=== PATIENT | female | born 1950 | race Two or more races ===

== ENCOUNTER 2023-01-22 14:40 | Inpatient (IN) | payer MEDICARE, OTHER ==
[~2023-01-22] VITALS: Ht 160 cm; Wt 83.7 kg
[2023-01-22] MEDS ORDERED: DEXAMETHASONE SOD PHOSPHATE 4 MG INJ IV ONE (15:30)
[2023-01-22] MEDS ORDERED: IV NORMAL SALINE 1000 ML BAG IV ONE (15:30)
[2023-01-22] MEDS ORDERED: CEFTRIAXONE 1 G in IV DEXTROSE 5% 50 ML IV ONE (15:30)
[2023-01-22] MEDS ORDERED: AZITHROMYCIN IV 500 MG in IV DEXTROSE 5% 250 ML IV ONE (15:30)
[2023-01-22] MEDS ORDERED: CEFTRIAXONE /D5W 50ML IVPB **ER PYXIS IV ONE (15:33)
[2023-01-22] MEDS ORDERED: nka (15:45)
[2023-01-22] MEDS ORDERED: DEXAMETHASONE SOD PHOSPHATE 10 MG INJ ONE (15:51)
[2023-01-22 16:07] LABS: BASOPHILS # (AUTO) 0.1 K/UL (0.0-0.2); BASOPHILS % (AUTO) 1.2 % (0.0-2.0); EOSINOPHILS # (AUTO) 0.3 K/uL (0.0-0.7); EOSINOPHILS % (AUTO) 3.1 % (0.0-7.0); LYMPHOCYTES # (AUTO) 1.6 K/uL (0.8-4.8); LYMPHOCYTES % (AUTO) 19.5 % (20.5-51.5); MEAN CORPUSCULAR HEMOGLOBIN 30.3 uug (24.7-32.8); MEAN CORPUSCULAR HGB CONC 33 g/dL (32.3-35.6); MEAN CORPUSCULAR VOLUME 93.1 fL (75.5-95.3); MONOCYTES # (AUTO) 0.6 K/uL (0.1-1.30); MONOCYTES % (AUTO) 7.2 % (0.0-11.0); NEUTROPHILS # (AUTO) 5.7 K/uL (1.8-8.9); PLATELET COUNT (AUTO) 224 K/uL (179-408); RED CELL DISTRIBUTION WIDTH 15.4 % (12.3-17.7); WHITE BLOOD COUNT (AUTO) 8.3 K/uL (3.8-11.8)
[2023-01-22 16:24] LABS: *BILIRUBIN,URIN NEGATIVE (NEGATIVE); *BLOOD, URINE 1+ (NEGATIVE); *COLOR,URINE YELLOW (YELLOW); *KETONES,URINE NEGATIVE (NEGATIVE); *UROBILINOGEN,URINE 0.2 E.U./dl (NORMAL); LEUKOCYTE ESTERASE ,URINE 2+ (NEGATIVE); NITRITE, URINE NEGATIVE (NEGATIVE); UGLUCOSE TRACE (NEGATIVE)
[2023-01-22 16:35] LABS: CALCIUM 7.1 mg/dL (8.5-10.1); CARBON DIOXIDE 20 mmol/L (21-32); CHLORIDE 101 mmol/L (98-107); CREATININE 1.5 mg/dL (0.6-1.3); GLUCOSE 303 mg/dL (74-106); SODIUM SERUM 131 mmol/L (136-145); UREA NITROGEN, BLOOD 46 mg/dL (7-18)
[2023-01-22 16:37] LABS: RED BLOOD CELL COUNT(AUTO) 1.49 MIL/uL (3.63-4.92)
[2023-01-22 16:38] LABS: DIFFERENTIAL COMMENT 1; HEMATOCRIT 13.9 % (31.2-41.9)
[2023-01-22 16:39] LABS: HEMOGLOBIN 4.5 g/dL (10.9-14.3)
[2023-01-22 16:47] LABS: ALANINE AMINOTRANSFERASE 6 U/L (14-59); ALKALINE PHOSPHATASE 58 U/L (50-136); ASPARTATE AMINOTRANSFERASE 13 U/L (15-37); BILIRUBIN,DIRECT 0.1 mg/dL (0.0-0.2); BILIRUBIN,TOTAL 0.2 mg/dL (0.2-1.0); NT-PRO BNP 1544 pg/mL (0-125); TOTAL PROTEIN, SERUM 3.5 g/dL (6.4-8.2)
[2023-01-22 17:03] LABS: ALBUMIN 1.1 g/dL (3.4-5.0)
[2023-01-22 17:22] LABS: *PROTEIN,URINE 3+ (NEGATIVE)
[2023-01-22 17:23] LABS: *CLARITY,URINE SLIGHTLY CLOUDY (CLEAR)
[2023-01-22 17:28] LABS: BASOPHILS % (MANUAL) 0 % (0-2); EOSINOPHILS % (MANUAL) 2 % (0-8); LYMPHOCYTES % (MANUAL) 20 % (20-40); MONOCYTES % (MANUAL) 8 % (2-10); NEUTROPHILS % (MANUAL) 70 % (42-75)
[2023-01-22 18:02] LABS: ABG BASE EXCESS -4.5 mmol/L; ABG HCO3 18.3 mmol/L; ABG PCO2 23.5 mmHg (35.0-45.0); ABG PO2 75.7 mmHg (75.0-100.0); ABG SITE RIGHT RADIAL; ABG TOTAL HEMOGLOBIN 5.2 G/dL (12.0-16.0); COHb 0.5 % (0.5-1.5); MetHb 0.4 % (0.0-1.5); O2Hb 94.5 % (94.0-97.0); VENT MODE room air
[2023-01-22] MEDS ORDERED: REMEDY ESSENTIAL ZINC PASTE 113 GM TP PRN (18:30)
[2023-01-22] MEDS ORDERED: ONDANSETRON 4 MG/2 ML VIAL IV PRN (18:30)
[2023-01-22] MEDS ORDERED: MAGNESIUM HYDROXIDE 30 ML LIQUID UDC PO PRN (18:30)
[2023-01-22] MEDS ORDERED: ACETAMINOPHEN 325 MG TABLET PO PRN (18:30)
[2023-01-22] MEDS ORDERED: PIPERACILLIN SODIUM/TAZOBACTAM 4.5 G in IV DEXTROSE 5% 50 ML IV SCH (18:30)
[2023-01-22] MEDS ORDERED: VANCOMYCIN IV 1,500 MG in IV DEXTROSE 5% 500 ML IV ONE (21:30)
[2023-01-22 21:40] VITALS: BP 111/41; TEMP 97.4; O2SAT 94
[2023-01-22] MEDS ORDERED: PIPERACILLIN/TAZO 4.5 GM VIAL IV ONE ×2 (22:09)
[2023-01-22] MEDS ORDERED: VANCOMYCIN IV 200 ML ONE (22:11)
[2023-01-22] MEDS ORDERED: VANCOMYCIN HCL 500 MG VIAL ONE (22:12)
[2023-01-22] MEDS: IV NS 1000 ML 1,000 ML IV PRN (22:14)
[2023-01-22] MEDS ORDERED: DEXTROSE 50% 50 ML DISP.SYRIN IV PRN (23:00)
[2023-01-22] MEDS: BLOOD SUGAR DIAGNOSTIC 1 EACH STRIP VI SCH (23:02)
[2023-01-22] MEDS: INSULIN REGULAR, HUMAN 300 UNIT/3 ML VIAL SQ PRN (23:04)
[2023-01-22] MEDS: PIPERACILLIN SODIUM/TAZOBACTAM 4.5 G in IV DEXTROSE 5% 50 ML IV SCH (23:32)
[2023-01-23] VITALS (18 sets, daily range): BP systolic 101–132; BP diastolic 45–65; TEMP 97–97.9; O2SAT 97–99
[2023-01-23] MEDS: PIPERACILLIN SODIUM/TAZOBACTAM 4.5 G in IV DEXTROSE 5% 50 ML IV SCH (05:09)
[2023-01-23 05:22] LABS: BASOPHILS % (AUTO) 0.2 % (0.0-2.0); HEMATOCRIT 24.1 % (31.2-41.9); HEMOGLOBIN 8.3 g/dL (10.9-14.3); LYMPHOCYTES % (AUTO) 7.4 % (20.5-51.5); MEAN CORPUSCULAR HEMOGLOBIN 30.5 uug (24.7-32.8); MEAN CORPUSCULAR HGB CONC 35 g/dL (32.3-35.6); MEAN CORPUSCULAR VOLUME 88.3 fL (75.5-95.3); MONOCYTES # (AUTO) 0.4 K/uL (0.1-1.30); MONOCYTES % (AUTO) 2.6 % (0.0-11.0); NEUTROPHILS % (AUTO) 89.8 % (38.5-71.5); PLATELET COUNT (AUTO) 196 K/uL (179-408); RED BLOOD CELL COUNT(AUTO) 2.73 MIL/uL (3.63-4.92); RED CELL DISTRIBUTION WIDTH 14.5 % (12.3-17.7); WHITE BLOOD COUNT (AUTO) 13.4 K/uL (3.8-11.8)
[2023-01-23 05:31] LABS: DIFFERENTIAL COMMENT 1
[2023-01-23 05:36] LABS: CALCIUM 7.5 mg/dL (8.5-10.1); CARBON DIOXIDE 20 mmol/L (21-32); CHLORIDE 101 mmol/L (98-107); CREATININE 1.8 mg/dL (0.6-1.3); GLUCOSE 216 mg/dL (74-106); MAGNESIUM 2.5 mg/dL (1.8-2.4); POTASSIUM 5.3 mmol/L (3.5-5.1); SODIUM SERUM 130 mmol/L (136-145); UREA NITROGEN, BLOOD 47 mg/dL (7-18)
[2023-01-23] MEDS: BLOOD SUGAR DIAGNOSTIC 1 EACH STRIP VI SCH ×4 (06:30→20:29)
[2023-01-23] MEDS ORDERED: PANTOPRAZOLE SODIUM IV 40 MG in IV DEXTROSE 5% 100 ML IV SCH (09:00)
[2023-01-23] MEDS: PANTOPRAZOLE SODIUM 40 MG VIAL IV SCH ×2 (09:07→20:29)
[2023-01-23] MEDS: INSULIN REGULAR, HUMAN 300 UNIT/3 ML VIAL SQ PRN ×3 (09:08→20:39)
[2023-01-23 12:56] LABS: THYROID STIMULATING HORMONE 1.291 mIU/mL (0.358-3.740)
[2023-01-23] MEDS: PIPERACILLIN SODIUM/TAZOBACTAM 3.375 G in IV DEXTROSE 5% 100 ML IV SCH ×2 (14:44→23:29)
[2023-01-23 17:58] LABS: HEMATOCRIT 21.1 % (31.2-41.9)
[2023-01-23 18:04] LABS: HEMOGLOBIN 6.9 g/dL (10.9-14.3)
[2023-01-23] MEDS ORDERED: HYDR25SU33 RC (18:49)
[2023-01-23] MEDS ORDERED: AMLO10TA59 PO (18:49)
[2023-01-23] MEDS ORDERED: LACT1TAB12 PO (18:49)
[2023-01-23] MEDS ORDERED: LUBI24CA5 PO (18:49)
[2023-01-23] MEDS ORDERED: INSU100V39 SQ (18:53)
[2023-01-23] MEDS ORDERED: DOCU100C36 PO (18:53)
[2023-01-23] MEDS ORDERED: HYDR-894 PO (18:53)
[2023-01-23] MEDS ORDERED: SODI20VI2 IV (19:00)
[2023-01-23] MEDS ORDERED: POLY17PO4 GT (19:00)
[2023-01-23] MEDS ORDERED: PANT40TA49 PO (19:00)
[2023-01-23] MEDS ORDERED: MESA4ENE4 RC (19:00)
[2023-01-23] MEDS ORDERED: LACT10SO58 PO (19:00)
[2023-01-23] MEDS: IV NS 1000 ML 1,000 ML IV PRN (19:14)
[2023-01-23 19:58] LABS: *OCCULT BLOOD STOOL POSITIVE (NEGATIVE)
[2023-01-24] VITALS (8 sets, daily range): BP systolic 101–131; BP diastolic 47–66; TEMP 97.1–98.3; O2SAT 96–100
[2023-01-24] MEDS: PIPERACILLIN SODIUM/TAZOBACTAM 3.375 G in IV DEXTROSE 5% 100 ML IV SCH ×3 (05:19→22:16)
[2023-01-24] MEDS: BLOOD SUGAR DIAGNOSTIC 1 EACH STRIP VI SCH ×4 (06:33→21:01)
[2023-01-24 07:13] LABS: BASOPHILS % (AUTO) 0.1 % (0.0-2.0); EOSINOPHILS # (AUTO) 0.1 K/uL (0.0-0.7); EOSINOPHILS % (AUTO) 1.2 % (0.0-7.0); HEMATOCRIT 25.3 % (31.2-41.9); HEMOGLOBIN 8.9 g/dL (10.9-14.3); LYMPHOCYTES % (AUTO) 19.9 % (20.5-51.5); MEAN CORPUSCULAR HEMOGLOBIN 31.3 uug (24.7-32.8); MEAN CORPUSCULAR HGB CONC 35 g/dL (32.3-35.6); MEAN CORPUSCULAR VOLUME 89.1 fL (75.5-95.3); MONOCYTES # (AUTO) 0.7 K/uL (0.1-1.30); MONOCYTES % (AUTO) 7.4 % (0.0-11.0); NEUTROPHILS # (AUTO) 7.1 K/uL (1.8-8.9); NEUTROPHILS % (AUTO) 71.4 % (38.5-71.5); PLATELET COUNT (AUTO) 224 K/uL (179-408); RED BLOOD CELL COUNT(AUTO) 2.84 MIL/uL (3.63-4.92); RED CELL DISTRIBUTION WIDTH 14.6 % (12.3-17.7)
[2023-01-24 07:23] LABS: DIFFERENTIAL COMMENT 1
[2023-01-24 07:29] LABS: ALANINE AMINOTRANSFERASE 9 U/L (14-59); ALKALINE PHOSPHATASE 134 U/L (50-136); ASPARTATE AMINOTRANSFERASE 16 U/L (15-37); BILIRUBIN,TOTAL 0.6 mg/dL (0.2-1.0); CALCIUM 7.4 mg/dL (8.5-10.1); CARBON DIOXIDE 19 mmol/L (21-32); CHLORIDE 102 mmol/L (98-107); CREATINE KINASE, TOTAL 104 U/L (26-192); CREATININE 1.6 mg/dL (0.6-1.3); GLUCOSE 116 mg/dL (74-106); MAGNESIUM 2.4 mg/dL (1.8-2.4); PHOSPHOROUS 4.4 mg/dL (2.5-4.9); POTASSIUM 4.4 mmol/L (3.5-5.1); SODIUM SERUM 133 mmol/L (136-145); TOTAL PROTEIN, SERUM 4.6 g/dL (6.4-8.2); UREA NITROGEN, BLOOD 41 mg/dL (7-18)
[2023-01-24 07:52] LABS: URIC ACID 4.8 mg/dL (2.6-6.0)
[2023-01-24] MEDS ORDERED: VANCOMYCIN IV 1,250 MG in IV DEXTROSE 5% 250 ML IV ONE (08:00)
[2023-01-24 08:58] LABS: ALBUMIN 1.5 g/dL (3.4-5.0)
[2023-01-24] MEDS: PANTOPRAZOLE SODIUM 40 MG VIAL IV SCH ×2 (09:22→20:57)
[2023-01-24 18:06] LABS: HEMATOCRIT 25.6 % (31.2-41.9); HEMOGLOBIN 9.2 g/dL (10.9-14.3)
[2023-01-25] VITALS: BP 130/50; TEMP 97.8; O2SAT 99
[2023-01-25 04:00] VITALS: BP 131/57; TEMP 97.5; O2SAT 99
[2023-01-25 04:01] VITALS: BP 132/53; TEMP 97.6; O2SAT 99
[2023-01-25] MEDS: IV NS 1000 ML 1,000 ML IV PRN (04:09)
[2023-01-25] MEDS: PIPERACILLIN SODIUM/TAZOBACTAM 3.375 G in IV DEXTROSE 5% 100 ML IV SCH ×3 (05:55→21:20)
[2023-01-25 06:07] LABS: PTH, INTACT 64 pg/mL (15-65)
[2023-01-25] MEDS: BLOOD SUGAR DIAGNOSTIC 1 EACH STRIP VI SCH ×4 (06:40→21:20)
[2023-01-25 08:11] LABS: CALCIUM 7.3 mg/dL (8.5-10.1); CARBON DIOXIDE 20 mmol/L (21-32); CHLORIDE 106 mmol/L (98-107); CREATININE 1.6 mg/dL (0.6-1.3); GLUCOSE 100 mg/dL (74-106); SODIUM SERUM 135 mmol/L (136-145); UREA NITROGEN, BLOOD 36 mg/dL (7-18)
[2023-01-25 08:16] LABS: POTASSIUM 4.6 mmol/L (3.5-5.1)
[2023-01-25 09:07] LABS: A/G RATIO 0.7 (0.7-1.7); ALBUMIN 1.8 g/dL (2.9-4.4); ALPHA-1-GLOBULIN 0.3 g/dL (0.0-0.4); ALPHA-2-GLOBULIN 0.8 g/dL (0.4-1.0); BETA GLOBULIN 0.7 g/dL (0.7-1.3); GAMMA GLOBULIN 0.7 g/dL (0.4-1.8); GLOBULIN, TOTAL 2.5 g/dL (2.2-3.9); M-SPIKE Not Observed g/dL (Not Observed)
[2023-01-25] MEDS: PANTOPRAZOLE SODIUM 40 MG VIAL IV SCH ×2 (09:15→21:20)
[2023-01-25] MEDS ORDERED: VANCOMYCIN IV 1,000 MG in IV DEXTROSE 5% 250 ML IV SCH (11:00)
[2023-01-25 12:55] LABS: BASOPHILS % (AUTO) 0.5 % (0.0-2.0); EOSINOPHILS # (AUTO) 0.3 K/uL (0.0-0.7); EOSINOPHILS % (AUTO) 4.1 % (0.0-7.0); HEMATOCRIT 24.7 % (31.2-41.9); HEMOGLOBIN 8.4 g/dL (10.9-14.3); LYMPHOCYTES # (AUTO) 1.6 K/uL (0.8-4.8); LYMPHOCYTES % (AUTO) 26.5 % (20.5-51.5); MEAN CORPUSCULAR HEMOGLOBIN 31.2 uug (24.7-32.8); MEAN CORPUSCULAR HGB CONC 34 g/dL (32.3-35.6); MONOCYTES # (AUTO) 0.7 K/uL (0.1-1.30); MONOCYTES % (AUTO) 10.8 % (0.0-11.0); NEUTROPHILS # (AUTO) 3.6 K/uL (1.8-8.9); NEUTROPHILS % (AUTO) 58.1 % (38.5-71.5); PLATELET COUNT (AUTO) 232 K/uL (179-408); RED BLOOD CELL COUNT(AUTO) 2.71 MIL/uL (3.63-4.92); RED CELL DISTRIBUTION WIDTH 14.9 % (12.3-17.7); WHITE BLOOD COUNT (AUTO) 6.2 K/uL (3.8-11.8)
[2023-01-25 13:11] LABS: DIFFERENTIAL COMMENT 1
[2023-01-25 15:13] VITALS: BP 106/52; TEMP 97.6; O2SAT 99
[2023-01-25 16:20] VITALS: O2SAT 98
[2023-01-25] MEDS: IV D5 1/2 NS 1000 ML 1,000 ML IV SCH (18:14)
[2023-01-25 20:00] VITALS: BP 126/60; TEMP 97.6; O2SAT 97
[2023-01-25] MEDS: INSULIN REGULAR, HUMAN 300 UNIT/3 ML VIAL SQ PRN (21:30)
[2023-01-26 02:58] VITALS: O2SAT 98
[2023-01-26 04:00] VITALS: BP 150/69; TEMP 97.8; O2SAT 96
[2023-01-26] MEDS: PIPERACILLIN SODIUM/TAZOBACTAM 3.375 G in IV DEXTROSE 5% 100 ML IV SCH (05:06)
[2023-01-26] MEDS: IV D5 1/2 NS 1000 ML 1,000 ML IV SCH (06:21)
[2023-01-26] MEDS: BLOOD SUGAR DIAGNOSTIC 1 EACH STRIP VI SCH ×3 (06:38→16:57)
[2023-01-26 07:09] LABS: CALCIUM 7.6 mg/dL (8.5-10.1); CARBON DIOXIDE 20 mmol/L (21-32); CHLORIDE 105 mmol/L (98-107); CREATININE 1.5 mg/dL (0.6-1.3); GLUCOSE 147 mg/dL (74-106); SODIUM SERUM 134 mmol/L (136-145); UREA NITROGEN, BLOOD 31 mg/dL (7-18)
[2023-01-26 07:18] LABS: POTASSIUM 4.6 mmol/L (3.5-5.1)
[2023-01-26] MEDS ORDERED: VANCOMYCIN IV 1,000 MG in IV DEXTROSE 5% 250 ML IV ONE (08:00)
[2023-01-26 08:30] LABS: BASOPHILS # (AUTO) 0.1 K/UL (0.0-0.2); BASOPHILS % (AUTO) 0.8 % (0.0-2.0); EOSINOPHILS # (AUTO) 0.5 K/uL (0.0-0.7); EOSINOPHILS % (AUTO) 6.7 % (0.0-7.0); HEMATOCRIT 24.3 % (31.2-41.9); HEMOGLOBIN 8.4 g/dL (10.9-14.3); LYMPHOCYTES # (AUTO) 1.5 K/uL (0.8-4.8); MEAN CORPUSCULAR HEMOGLOBIN 31.3 uug (24.7-32.8); MEAN CORPUSCULAR HGB CONC 34 g/dL (32.3-35.6); MEAN CORPUSCULAR VOLUME 90.9 fL (75.5-95.3); MONOCYTES # (AUTO) 0.6 K/uL (0.1-1.30); MONOCYTES % (AUTO) 8.2 % (0.0-11.0); NEUTROPHILS # (AUTO) 4.5 K/uL (1.8-8.9); NEUTROPHILS % (AUTO) 63.3 % (38.5-71.5); PLATELET COUNT (AUTO) 252 K/uL (179-408); RED BLOOD CELL COUNT(AUTO) 2.67 MIL/uL (3.63-4.92); RED CELL DISTRIBUTION WIDTH 14.9 % (12.3-17.7); WHITE BLOOD COUNT (AUTO) 7.1 K/uL (3.8-11.8)
[2023-01-26] MEDS: PANTOPRAZOLE SODIUM 40 MG VIAL IV SCH (08:45)
[2023-01-26 12:30] VITALS: O2SAT 97
[2023-01-26] MEDS: INSULIN REGULAR, HUMAN 300 UNIT/3 ML VIAL SQ PRN ×2 (13:08→16:58)
[2023-01-26 16:00] VITALS: BP 142/62; TEMP 97.9; O2SAT 98
== END 2023-01-26 18:00 | DRG 377 ==
LOC: ER 14:40 → TELE3 21:05
PROVIDERS: ADMIT Internal Medicine; ATTEND Internal Medicine
PROC: 30233N1 Transfusion of Nonautologous Red Blood Cells into Peripheral Vein, Percutaneous Approach (ICD-10-PCS; principal; 2023-01-22)
DX: K92.2 Gastrointestinal hemorrhage, unspecified (principal); G93.41 Metabolic encephalopathy; J69.0 Pneumonitis due to inhalation of food and vomit; N17.0 Acute kidney failure with tubular necrosis; D62 Acute posthemorrhagic anemia; N39.0 Urinary tract infection, site not specified; E11.43 Type 2 diabetes mellitus with diabetic autonomic (poly)neuropathy; K31.84 Gastroparesis; E21.3 Hyperparathyroidism, unspecified; E11.65 Type 2 diabetes mellitus with hyperglycemia; E11.22 Type 2 diabetes mellitus with diabetic chronic kidney disease; R63.0 Anorexia; E87.5 Hyperkalemia; Z79.4 Long term (current) use of insulin; Z86.73 Personal history of transient ischemic attack (TIA), and cerebral infarction without residual deficits; Z87.19 Personal history of other diseases of the digestive system; N18.9 Chronic kidney disease, unspecified; I12.9 Hypertensive chronic kidney disease with stage 1 through stage 4 chronic kidney disease, or unspecified chronic kidney disease
CPT/HCPCS: 36415; 36600; 70030-TC; 70450; 71045; 76770; 82803; 83605; 83735; 83970; 84100; 84155; 84165; 84443; 84484; 84550; 85018; 85025; 85730; 86850; 86900; 86901; 86920; 87040; 93005; C1758; C9113; G0378; J0696; J1100; J1815; J2543; J3370; J7040; J7050; J7060; P9016

== ENCOUNTER 2023-01-26 18:33 | Inpatient (IN) | payer MEDICARE, OTHER ==
[~2023-01-26] VITALS: Ht 160 cm; Wt 87.7 kg
[~2023-01-26 18:33] MED LIST: AMLO10TA59 PO; DOCU100C36 PO; HYDR-894 PO; HYDR25SU33 RC; INSU100V39 SQ; LACT10SO58 PO; LACT1TAB12 PO; LUBI24CA5 PO; MESA4ENE4 RC; PANT40TA49 PO; POLY17PO4 GT; SODI20VI2 IV
[2023-01-26 20:17] VITALS: BP 134/56; TEMP 97.1; O2SAT 98
[2023-01-26] MEDS ORDERED: DEXTROSE 50% 50 ML DISP.SYRIN IV PRN (20:45)
[2023-01-26] MEDS: BLOOD SUGAR DIAGNOSTIC 1 EACH STRIP VI SCH (21:28)
[2023-01-26 22:00] VITALS: O2SAT 98
[2023-01-27 04:00] VITALS: BP 144/64; TEMP 98.6; O2SAT 100
[2023-01-27] MEDS: PANTOPRAZOLE SODIUM 40 MG TABLET.DR PO SCH ×2 (06:06→17:32)
[2023-01-27] MEDS: BLOOD SUGAR DIAGNOSTIC 1 EACH STRIP VI SCH ×4 (06:33→21:07)
[2023-01-27 09:23] VITALS: BP 128/50; TEMP 97.2; O2SAT 96
[2023-01-27] MEDS: HYDROCORTISONE RECTAL SUPP 25 MG EACH RC SCH ×2 (09:39→20:48)
[2023-01-27] MEDS: DOCUSATE SODIUM 100 MG CAPSULE PO SCH (09:39)
[2023-01-27] MEDS: AMLODIPINE 10 MG TABLET PO SCH (09:40)
[2023-01-27] MEDS: METOCLOPRAMIDE HCL 5 MG TABLET PO SCH ×3 (11:59→20:48)
[2023-01-27 16:14] VITALS: BP 128/58; TEMP 97.4; O2SAT 95
[2023-01-27 20:00] VITALS: BP 117/52; TEMP 98.2; O2SAT 95
[2023-01-27 20:38] VITALS: O2SAT 98
[2023-01-28 05:28] VITALS: BP 129/62; TEMP 98.1; O2SAT 96
[2023-01-28] MEDS: PANTOPRAZOLE SODIUM 40 MG TABLET.DR PO SCH ×2 (06:18→16:57)
[2023-01-28] MEDS: METOCLOPRAMIDE HCL 5 MG TABLET PO SCH ×4 (06:18→20:20)
[2023-01-28] MEDS: BLOOD SUGAR DIAGNOSTIC 1 EACH STRIP VI SCH ×4 (06:27→21:31)
[2023-01-28 07:21] LABS: BASOPHILS # (AUTO) 0.1 K/UL (0.0-0.2); BASOPHILS % (AUTO) 1.3 % (0.0-2.0); EOSINOPHILS # (AUTO) 0.3 K/uL (0.0-0.7); EOSINOPHILS % (AUTO) 4.9 % (0.0-7.0); HEMATOCRIT 26.3 % (31.2-41.9); HEMOGLOBIN 8.9 g/dL (10.9-14.3); LYMPHOCYTES # (AUTO) 1.5 K/uL (0.8-4.8); LYMPHOCYTES % (AUTO) 26.5 % (20.5-51.5); MEAN CORPUSCULAR HEMOGLOBIN 31.3 uug (24.7-32.8); MEAN CORPUSCULAR HGB CONC 34 g/dL (32.3-35.6); MEAN CORPUSCULAR VOLUME 92.4 fL (75.5-95.3); MONOCYTES # (AUTO) 0.4 K/uL (0.1-1.30); MONOCYTES % (AUTO) 6.4 % (0.0-11.0); NEUTROPHILS # (AUTO) 3.5 K/uL (1.8-8.9); NEUTROPHILS % (AUTO) 60.9 % (38.5-71.5); PLATELET COUNT (AUTO) 295 K/uL (179-408); RED BLOOD CELL COUNT(AUTO) 2.85 MIL/uL (3.63-4.92); RED CELL DISTRIBUTION WIDTH 15.3 % (12.3-17.7); WHITE BLOOD COUNT (AUTO) 5.7 K/uL (3.8-11.8)
[2023-01-28 07:34] LABS: DIFFERENTIAL COMMENT 1
[2023-01-28 08:00] VITALS: BP 136/60; O2SAT 100
[2023-01-28] MEDS: HYDROCORTISONE RECTAL SUPP 25 MG EACH RC SCH ×2 (09:23→20:20)
[2023-01-28] MEDS: DOCUSATE SODIUM 100 MG CAPSULE PO SCH (09:23)
[2023-01-28] MEDS: AMLODIPINE 10 MG TABLET PO SCH (09:23)
[2023-01-28] MEDS ORDERED: GOLYTELY 4000 ML BOTTLE PO ONE (10:30)
[2023-01-28] MEDS: IV D5 1/2 NS 1000 ML 1,000 ML IV PRN (11:49)
[2023-01-28] MEDS: ONDANSETRON 4 MG/2 ML VIAL IV PRN ×2 (13:35→20:20)
[2023-01-28 15:21] VITALS: BP 131/54; TEMP 98.6; O2SAT 96
[2023-01-28 17:02] VITALS: O2SAT 98
[2023-01-28] MEDS: INSULIN REGULAR, HUMAN 300 UNIT/3 ML VIAL SQ PRN (17:06)
[2023-01-28 20:11] VITALS: BP 133/61; TEMP 97.9
[2023-01-28 21:12] VITALS: O2SAT 98
[2023-01-29] MEDS: IV D5 1/2 NS 1000 ML 1,000 ML IV PRN ×2 (02:07→20:56)
[2023-01-29 04:00] VITALS: BP 148/70; TEMP 97.6; O2SAT 95
[2023-01-29 04:21] LABS: BASOPHILS # (AUTO) 0.1 K/UL (0.0-0.2); BASOPHILS % (AUTO) 0.8 % (0.0-2.0); EOSINOPHILS # (AUTO) 0.3 K/uL (0.0-0.7); EOSINOPHILS % (AUTO) 5.2 % (0.0-7.0); HEMATOCRIT 24.6 % (31.2-41.9); HEMOGLOBIN 8.4 g/dL (10.9-14.3); LYMPHOCYTES # (AUTO) 1.1 K/uL (0.8-4.8); LYMPHOCYTES % (AUTO) 17.3 % (20.5-51.5); MEAN CORPUSCULAR HEMOGLOBIN 31.2 uug (24.7-32.8); MEAN CORPUSCULAR HGB CONC 34 g/dL (32.3-35.6); MEAN CORPUSCULAR VOLUME 91.6 fL (75.5-95.3); MONOCYTES # (AUTO) 0.4 K/uL (0.1-1.30); MONOCYTES % (AUTO) 5.9 % (0.0-11.0); NEUTROPHILS # (AUTO) 4.5 K/uL (1.8-8.9); NEUTROPHILS % (AUTO) 70.8 % (38.5-71.5); PLATELET COUNT (AUTO) 291 K/uL (179-408); RED BLOOD CELL COUNT(AUTO) 2.69 MIL/uL (3.63-4.92); RED CELL DISTRIBUTION WIDTH 15.3 % (12.3-17.7); WHITE BLOOD COUNT (AUTO) 6.4 K/uL (3.8-11.8)
[2023-01-29 04:35] LABS: CALCIUM 7.6 mg/dL (8.5-10.1); CARBON DIOXIDE 21 mmol/L (21-32); CHLORIDE 106 mmol/L (98-107); CREATININE 1.4 mg/dL (0.6-1.3); GLUCOSE 144 mg/dL (74-106); MAGNESIUM 1.7 mg/dL (1.8-2.4); PHOSPHOROUS 3.2 mg/dL (2.5-4.9); POTASSIUM 3.8 mmol/L (3.5-5.1); SODIUM SERUM 137 mmol/L (136-145); UREA NITROGEN, BLOOD 19 mg/dL (7-18)
[2023-01-29 04:37] LABS: DIFFERENTIAL COMMENT 1
[2023-01-29] MEDS: ONDANSETRON 4 MG/2 ML VIAL IV PRN ×2 (04:48→12:53)
[2023-01-29] MEDS: BLOOD SUGAR DIAGNOSTIC 1 EACH STRIP VI SCH ×4 (06:55→21:00)
[2023-01-29] MEDS: PANTOPRAZOLE SODIUM 40 MG TABLET.DR PO SCH ×2 (07:00→16:35)
[2023-01-29] MEDS: METOCLOPRAMIDE HCL 5 MG TABLET PO SCH ×4 (07:02→22:19)
[2023-01-29] MEDS ORDERED: GOLYTELY 4000 ML BOTTLE PO ONE (07:30)
[2023-01-29 08:04] VITALS: BP 144/63; TEMP 97.9; O2SAT 96
[2023-01-29] MEDS ORDERED: MAGNESIUM OXIDE 400 MG TABLET PO ONE (08:15)
[2023-01-29] MEDS: DOCUSATE SODIUM 100 MG CAPSULE PO SCH (08:30)
[2023-01-29] MEDS: AMLODIPINE 10 MG TABLET PO SCH (08:30)
[2023-01-29] MEDS: HYDROCORTISONE RECTAL SUPP 25 MG EACH RC SCH ×2 (08:30→22:19)
[2023-01-29] MEDS: INSULIN REGULAR, HUMAN 300 UNIT/3 ML VIAL SQ PRN (12:35)
[2023-01-29 15:45] VITALS: BP 119/56; TEMP 98; O2SAT 95
[2023-01-29 17:34] VITALS: O2SAT 98
[2023-01-29 20:06] VITALS: BP 144/65; TEMP 97.9; O2SAT 96
[2023-01-30] VITALS (7 sets, daily range): BP systolic 128–146; BP diastolic 55–65; TEMP 97.6–97.9; O2SAT 95–98
[2023-01-30] MEDS: PANTOPRAZOLE SODIUM 40 MG TABLET.DR PO SCH ×2 (07:00→17:15)
[2023-01-30 07:28] LABS: BASOPHILS # (AUTO) 0.1 K/UL (0.0-0.2); EOSINOPHILS # (AUTO) 0.5 K/uL (0.0-0.7); EOSINOPHILS % (AUTO) 9.7 % (0.0-7.0); HEMOGLOBIN 8.3 g/dL (10.9-14.3); LYMPHOCYTES # (AUTO) 1.3 K/uL (0.8-4.8); LYMPHOCYTES % (AUTO) 25.1 % (20.5-51.5); MEAN CORPUSCULAR HEMOGLOBIN 31.4 uug (24.7-32.8); MEAN CORPUSCULAR HGB CONC 35 g/dL (32.3-35.6); MEAN CORPUSCULAR VOLUME 90.9 fL (75.5-95.3); MONOCYTES # (AUTO) 0.5 K/uL (0.1-1.30); MONOCYTES % (AUTO) 8.8 % (0.0-11.0); NEUTROPHILS # (AUTO) 2.9 K/uL (1.8-8.9); NEUTROPHILS % (AUTO) 55.4 % (38.5-71.5); PLATELET COUNT (AUTO) 322 K/uL (179-408); RED BLOOD CELL COUNT(AUTO) 2.65 MIL/uL (3.63-4.92); RED CELL DISTRIBUTION WIDTH 15.6 % (12.3-17.7); WHITE BLOOD COUNT (AUTO) 5.3 K/uL (3.8-11.8)
[2023-01-30 07:30] LABS: DIFFERENTIAL COMMENT 1
[2023-01-30] MEDS: METOCLOPRAMIDE HCL 5 MG TABLET PO SCH ×4 (07:30→22:04)
[2023-01-30 07:45] LABS: CALCIUM 7.9 mg/dL (8.5-10.1); CARBON DIOXIDE 23 mmol/L (21-32); CHLORIDE 105 mmol/L (98-107); CREATININE 1.3 mg/dL (0.6-1.3); GLUCOSE 119 mg/dL (74-106); POTASSIUM 3.2 mmol/L (3.5-5.1); SODIUM SERUM 134 mmol/L (136-145); UREA NITROGEN, BLOOD 15 mg/dL (7-18)
[2023-01-30] MEDS: BLOOD SUGAR DIAGNOSTIC 1 EACH STRIP VI SCH ×3 (08:11→17:10)
[2023-01-30] MEDS: DOCUSATE SODIUM 100 MG CAPSULE PO SCH ×2 (09:52→09:55)
[2023-01-30] MEDS: AMLODIPINE 10 MG TABLET PO SCH ×2 (09:52→09:55)
[2023-01-30] MEDS: HYDROCORTISONE RECTAL SUPP 25 MG EACH RC SCH ×2 (09:52→21:00)
[2023-01-30] MEDS ORDERED: POTASSIUM CHLORIDE 20 MEQ TAB.PRT.SR PO ONE (12:00)
[2023-01-30] MEDS: IV D5 1/2 NS 1000 ML 1,000 ML IV PRN (12:34)
[2023-01-30] MEDS ORDERED: IV D5/ 0.9% NACL 1,000 ML IV PRN (15:30)
[2023-01-30] MEDS ORDERED: FENTANYL CITRATE 100 MCG/2 ML AMPUL ONE (17:17)
[2023-01-30] MEDS ORDERED: LIDOCAINE-MPF 2% 5 ML VIAL ONE (18:00)
[2023-01-30] MEDS ORDERED: PROPOFOL 200 MG/20 ML BOTTLE ONE (18:00)
[2023-01-31 04:20] VITALS: BP 145/63; TEMP 98.1; O2SAT 96
[2023-01-31] MEDS: PANTOPRAZOLE SODIUM 40 MG TABLET.DR PO SCH ×2 (07:02→17:00)
[2023-01-31] MEDS: METOCLOPRAMIDE HCL 5 MG TABLET PO SCH ×4 (07:05→20:49)
[2023-01-31 07:26] LABS: BASOPHILS # (AUTO) 0.1 K/UL (0.0-0.2); EOSINOPHILS # (AUTO) 0.5 K/uL (0.0-0.7); EOSINOPHILS % (AUTO) 10.1 % (0.0-7.0); HEMATOCRIT 24.3 % (31.2-41.9); HEMOGLOBIN 8.2 g/dL (10.9-14.3); LYMPHOCYTES # (AUTO) 1.3 K/uL (0.8-4.8); LYMPHOCYTES % (AUTO) 26.3 % (20.5-51.5); MEAN CORPUSCULAR HEMOGLOBIN 31.3 uug (24.7-32.8); MEAN CORPUSCULAR HGB CONC 34 g/dL (32.3-35.6); MEAN CORPUSCULAR VOLUME 92.6 fL (75.5-95.3); MONOCYTES # (AUTO) 0.4 K/uL (0.1-1.30); MONOCYTES % (AUTO) 8.1 % (0.0-11.0); NEUTROPHILS # (AUTO) 2.7 K/uL (1.8-8.9); NEUTROPHILS % (AUTO) 53.5 % (38.5-71.5); PLATELET COUNT (AUTO) 339 K/uL (179-408); RED BLOOD CELL COUNT(AUTO) 2.62 MIL/uL (3.63-4.92); RED CELL DISTRIBUTION WIDTH 15.7 % (12.3-17.7); WHITE BLOOD COUNT (AUTO) 5.1 K/uL (3.8-11.8)
[2023-01-31 07:33] LABS: DIFFERENTIAL COMMENT 1
[2023-01-31 07:59] VITALS: BP 142/64; TEMP 98.1; O2SAT 93
[2023-01-31 08:02] LABS: BILIRUBIN,TOTAL 0.3 mg/dL (0.2-1.0); CREATININE 1.1 mg/dL (0.6-1.3); MAGNESIUM 1.7 mg/dL (1.8-2.4); PHOSPHOROUS 2.8 mg/dL (2.5-4.9); POTASSIUM 3.4 mmol/L (3.5-5.1); TOTAL PROTEIN, SERUM 4.5 g/dL (6.4-8.2)
[2023-01-31] MEDS ORDERED: JEVITY 1.2 1000 ML LIQUID GT PRN (08:15)
[2023-01-31 08:21] LABS: ALBUMIN 1.2 g/dL (3.4-5.0)
[2023-01-31] MEDS: DOCUSATE SODIUM 100 MG CAPSULE PO SCH (09:26)
[2023-01-31] MEDS: HYDROCORTISONE RECTAL SUPP 25 MG EACH RC SCH ×2 (09:27→20:49)
[2023-01-31] MEDS: AMLODIPINE 10 MG TABLET PO SCH (09:27)
[2023-01-31] MEDS ORDERED: POTASSIUM CHLORIDE 10 MEQ TAB.PRT.SR PO ONE (12:00)
[2023-01-31] MEDS ORDERED: MAGNESIUM OXIDE 400 MG TABLET PO ONE (12:00)
[2023-01-31] MEDS ORDERED: POTASSIUM CHLORIDE 20 MEQ POWDER PACKET PO ONE (13:00)
[2023-01-31 16:06] VITALS: BP 146/65; TEMP 98.5; O2SAT 95
[2023-01-31 16:11] VITALS: O2SAT 97
[2023-01-31 20:00] VITALS: BP 115/61; TEMP 98.4; O2SAT 95
[2023-01-31 21:28] VITALS: O2SAT 98
[2023-02-01 04:00] VITALS: BP 109/67; TEMP 98.2; O2SAT 96
[2023-02-01] MEDS: PANTOPRAZOLE SODIUM 40 MG TABLET.DR PO SCH ×2 (06:17→16:52)
[2023-02-01] MEDS: METOCLOPRAMIDE HCL 5 MG TABLET PO SCH ×4 (06:33→20:27)
[2023-02-01 08:00] VITALS: BP 141/79; TEMP 97.9; O2SAT 98
[2023-02-01] MEDS: DOCUSATE SODIUM 100 MG CAPSULE PO SCH (09:49)
[2023-02-01] MEDS: HYDROCORTISONE RECTAL SUPP 25 MG EACH RC SCH ×2 (09:51→20:27)
[2023-02-01] MEDS: AMLODIPINE 10 MG TABLET PO SCH (09:52)
[2023-02-01 11:30] VITALS: BP 160/71; TEMP 98.4; O2SAT 98
[2023-02-01] MEDS: hydrALAZINE HCL 25 MG TABLET PO PRN (11:56)
[2023-02-01 14:36] VITALS: O2SAT 98
[2023-02-01] MEDS ORDERED: REMEDY ESSENTIAL ZINC PASTE 113 GM TOP PRN (15:30)
[2023-02-01 16:17] VITALS: BP 114/71; TEMP 97.9; O2SAT 95
[2023-02-01 20:04] VITALS: BP 152/70; TEMP 97.6; O2SAT 95
[2023-02-02 04:24] VITALS: BP 158/67; TEMP 98.1; O2SAT 96
[2023-02-02] MEDS: PANTOPRAZOLE SODIUM 40 MG TABLET.DR PO SCH ×2 (06:15→17:21)
[2023-02-02] MEDS: METOCLOPRAMIDE HCL 5 MG TABLET PO SCH ×4 (06:31→20:54)
[2023-02-02 07:58] VITALS: BP 98/64; TEMP 98; O2SAT 97
[2023-02-02] MEDS: AMLODIPINE 10 MG TABLET PO SCH (09:02)
[2023-02-02] MEDS: DOCUSATE SODIUM 100 MG CAPSULE PO SCH (09:02)
[2023-02-02] MEDS: HYDROCORTISONE RECTAL SUPP 25 MG EACH RC SCH ×2 (09:02→20:54)
[2023-02-02 12:00] VITALS: O2SAT 98
[2023-02-02 15:34] VITALS: BP 144/55; TEMP 97.6; O2SAT 96
[2023-02-02] MEDS ORDERED: DEXTROSE 50% 50 ML DISP.SYRIN IV PRN (17:15)
[2023-02-02] MEDS: BLOOD SUGAR DIAGNOSTIC 1 EACH STRIP VI SCH ×2 (17:21→21:16)
[2023-02-02] MEDS: INSULIN REGULAR, HUMAN 300 UNIT/3 ML VIAL SQ PRN ×2 (17:48→21:18)
[2023-02-02 20:30] VITALS: BP 169/78; TEMP 97.8; O2SAT 97
[2023-02-02] MEDS: hydrALAZINE HCL 25 MG TABLET PO PRN (21:07)
[2023-02-03 04:00] VITALS: TEMP 98
[2023-02-03 04:51] VITALS: O2SAT 98
[2023-02-03 05:30] VITALS: BP 130/70; TEMP 98; O2SAT 97
[2023-02-03] MEDS: METOCLOPRAMIDE HCL 5 MG TABLET PO SCH ×4 (06:36→20:53)
[2023-02-03] MEDS: PANTOPRAZOLE SODIUM 40 MG TABLET.DR PO SCH ×2 (06:36→16:57)
[2023-02-03] MEDS: BLOOD SUGAR DIAGNOSTIC 1 EACH STRIP VI SCH ×4 (06:45→20:53)
[2023-02-03 08:00] VITALS: BP 128/81; TEMP 98.6; O2SAT 97
[2023-02-03] MEDS: AMLODIPINE 10 MG TABLET PO SCH (08:29)
[2023-02-03] MEDS: HYDROCORTISONE RECTAL SUPP 25 MG EACH RC SCH ×2 (08:29→20:53)
[2023-02-03] MEDS: DOCUSATE SODIUM 100 MG CAPSULE PO SCH (08:29)
[2023-02-03] MEDS: INSULIN REGULAR, HUMAN 300 UNIT/3 ML VIAL SQ PRN (08:31)
[2023-02-03 16:38] VITALS: BP 128/65; TEMP 97.9; O2SAT 98
[2023-02-03 22:27] VITALS: BP 142/61; TEMP 98.7; O2SAT 97
[2023-02-04 04:23] VITALS: BP 143/62; TEMP 98.6; O2SAT 95
[2023-02-04] MEDS: BLOOD SUGAR DIAGNOSTIC 1 EACH STRIP VI SCH ×4 (05:53→21:05)
[2023-02-04 06:00] LABS: BASOPHILS # (AUTO) 0.1 K/UL (0.0-0.2); BASOPHILS % (AUTO) 1.6 % (0.0-2.0); EOSINOPHILS # (AUTO) 0.4 K/uL (0.0-0.7); HEMATOCRIT 24.5 % (31.2-41.9); HEMOGLOBIN 8.3 g/dL (10.9-14.3); LYMPHOCYTES # (AUTO) 1.5 K/uL (0.8-4.8); LYMPHOCYTES % (AUTO) 29.2 % (20.5-51.5); MEAN CORPUSCULAR HEMOGLOBIN 31.3 uug (24.7-32.8); MEAN CORPUSCULAR HGB CONC 34 g/dL (32.3-35.6); MONOCYTES # (AUTO) 0.4 K/uL (0.1-1.30); MONOCYTES % (AUTO) 7.8 % (0.0-11.0); NEUTROPHILS # (AUTO) 2.6 K/uL (1.8-8.9); NEUTROPHILS % (AUTO) 52.4 % (38.5-71.5); PLATELET COUNT (AUTO) 354 K/uL (179-408); RED BLOOD CELL COUNT(AUTO) 2.67 MIL/uL (3.63-4.92); RED CELL DISTRIBUTION WIDTH 15.3 % (12.3-17.7)
[2023-02-04 06:05] LABS: DIFFERENTIAL COMMENT 1
[2023-02-04 06:38] LABS: BILIRUBIN,TOTAL 0.3 mg/dL (0.2-1.0); CALCIUM 8.4 mg/dL (8.5-10.1); CREATININE 1.2 mg/dL (0.6-1.3); MAGNESIUM 1.5 mg/dL (1.8-2.4); PHOSPHOROUS 3.5 mg/dL (2.5-4.9); POTASSIUM 3.6 mmol/L (3.5-5.1); TOTAL PROTEIN, SERUM 4.6 g/dL (6.4-8.2)
[2023-02-04] MEDS: PANTOPRAZOLE SODIUM 40 MG TABLET.DR PO SCH ×2 (06:45→16:03)
[2023-02-04] MEDS: METOCLOPRAMIDE HCL 5 MG TABLET PO SCH ×4 (07:38→21:02)
[2023-02-04 07:42] LABS: ALBUMIN 1.3 g/dL (3.4-5.0)
[2023-02-04] MEDS: INSULIN REGULAR, HUMAN 300 UNIT/3 ML VIAL SQ PRN ×2 (07:46→16:07)
[2023-02-04] MEDS: AMLODIPINE 10 MG TABLET PO SCH (08:54)
[2023-02-04] MEDS: HYDROCORTISONE RECTAL SUPP 25 MG EACH RC SCH ×2 (08:56→21:02)
[2023-02-04] MEDS: DOCUSATE SODIUM 100 MG CAPSULE PO SCH (08:56)
[2023-02-04] MEDS: MAGNESIUM SULFATE/D5W 100 ML IV SCH ×2 (08:59→11:33)
[2023-02-04 09:11] LABS: CALCIUM 7.9 mg/dL (8.5-10.1); CREATININE 1.2 mg/dL (0.6-1.3); POTASSIUM 3.9 mmol/L (3.5-5.1)
[2023-02-04 11:56] VITALS: BP 141/56
[2023-02-04 14:54] LABS: *BILIRUBIN,URIN NEGATIVE (NEGATIVE); *CLARITY,URINE CLOUDY (CLEAR); *COLOR,URINE YELLOW (YELLOW); *KETONES,URINE NEGATIVE (NEGATIVE); *UROBILINOGEN,URINE 0.2 E.U./dl (NORMAL); LEUKOCYTE ESTERASE ,URINE NEGATIVE (NEGATIVE); NITRITE, URINE NEGATIVE (NEGATIVE); UGLUCOSE TRACE (NEGATIVE)
[2023-02-04 15:04] LABS: *BLOOD, URINE TRACE (NEGATIVE); *PROTEIN,URINE 3+ (NEGATIVE)
[2023-02-04 17:20] VITALS: BP 141/56
[2023-02-04 20:00] VITALS: BP 129/53; TEMP 98; O2SAT 97
[2023-02-04 22:47] LABS: BACTERIA,URINE NONE SEEN /HPF (NONE SEEN); SQUAMOUS EPITHELIAL CELL,UR FEW /HPF (NONE SEEN); WBC,URINE 0-3 /HPF (0-3)
[2023-02-05 04:29] VITALS: BP 125/59; TEMP 97.7; O2SAT 95
[2023-02-05] MEDS: METOCLOPRAMIDE HCL 5 MG TABLET PO SCH ×2 (06:30→11:46)
[2023-02-05] MEDS: BLOOD SUGAR DIAGNOSTIC 1 EACH STRIP VI SCH ×3 (06:33→17:52)
[2023-02-05] MEDS ORDERED: PANTOPRAZOLE ORAL SUSPENSION 40 MG SUSPDR.PKT GT SCH (06:43)
[2023-02-05 07:42] VITALS: BP 137/58; TEMP 98.4; O2SAT 95
[2023-02-05] MEDS ORDERED: DOCUSATE SODIUM 100 MG/10 ML LIQUID UDC GT SCH (09:00)
[2023-02-05] MEDS: AMLODIPINE 10 MG TABLET PO SCH (09:34)
[2023-02-05] MEDS: HYDROCORTISONE RECTAL SUPP 25 MG EACH RC SCH ×2 (09:34→21:35)
[2023-02-05] MEDS: INSULIN REGULAR, HUMAN 300 UNIT/3 ML VIAL SQ PRN ×2 (09:35→12:14)
[2023-02-05] MEDS ORDERED: hydrALAZINE HCL 25 MG TABLET NG PRN (13:52)
[2023-02-05] MEDS ORDERED: DEXTROSE 50% 50 ML DISP.SYRIN IV PRN (14:00)
[2023-02-05 15:53] VITALS: BP 125/56; TEMP 98.4; O2SAT 96
[2023-02-05] MEDS: METOCLOPRAMIDE HCL 5 MG TABLET NG SCH ×2 (17:32→21:35)
[2023-02-05] MEDS: PANTOPRAZOLE ORAL SUSPENSION 40 MG SUSPDR.PKT NG SCH (17:32)
[2023-02-05] MEDS: JEVITY 1.2 1000 ML LIQUID NG PRN (17:34)
[2023-02-05 20:00] VITALS: BP 115/64; TEMP 98.6; O2SAT 94
[2023-02-06] MEDS: BLOOD SUGAR DIAGNOSTIC 1 EACH STRIP VI SCH ×4 (00:06→17:01)
[2023-02-06 04:00] VITALS: BP 142/71; TEMP 98; O2SAT 96
[2023-02-06 05:17] VITALS: O2SAT 98
[2023-02-06] MEDS: PANTOPRAZOLE ORAL SUSPENSION 40 MG SUSPDR.PKT NG SCH ×2 (06:15→16:39)
[2023-02-06] MEDS: METOCLOPRAMIDE HCL 5 MG TABLET NG SCH ×4 (06:32→21:19)
[2023-02-06 08:00] VITALS: BP 156/93; TEMP 98.5; O2SAT 96
[2023-02-06] MEDS: AMLODIPINE 10 MG TABLET NG SCH (09:00)
[2023-02-06] MEDS: INSULIN REGULAR, HUMAN 300 UNIT/3 ML VIAL SQ PRN ×2 (09:00→12:44)
[2023-02-06] MEDS: DOCUSATE SODIUM 100 MG/10 ML LIQUID UDC NG SCH (10:22)
[2023-02-06] MEDS: HYDROCORTISONE RECTAL SUPP 25 MG EACH RC SCH ×2 (10:23→21:18)
[2023-02-06 20:32] VITALS: BP 158/73; TEMP 98.1; O2SAT 95
[2023-02-07] MEDS: BLOOD SUGAR DIAGNOSTIC 1 EACH STRIP VI SCH ×3 (00:17→11:57)
[2023-02-07] MEDS: INSULIN REGULAR, HUMAN 300 UNIT/3 ML VIAL SQ PRN ×3 (00:18→11:56)
[2023-02-07 01:02] VITALS: O2SAT 98
[2023-02-07] MEDS: JEVITY 1.2 1000 ML LIQUID NG PRN (03:12)
[2023-02-07 04:22] VITALS: BP 155/71; TEMP 98.7; O2SAT 96
[2023-02-07] MEDS: PANTOPRAZOLE ORAL SUSPENSION 40 MG SUSPDR.PKT NG SCH (05:23)
[2023-02-07] MEDS: METOCLOPRAMIDE HCL 5 MG TABLET NG SCH ×2 (06:30→11:53)
[2023-02-07 07:56] VITALS: BP 154/98; TEMP 98.7; O2SAT 95
[2023-02-07 09:35] VITALS: BP 154/98
[2023-02-07] MEDS: AMLODIPINE 10 MG TABLET NG SCH (09:35)
[2023-02-07] MEDS: HYDROCORTISONE RECTAL SUPP 25 MG EACH RC SCH (09:35)
[2023-02-07] MEDS: DOCUSATE SODIUM 100 MG/10 ML LIQUID UDC NG SCH (09:35)
[2023-02-07] MEDS ORDERED: INFLUENZA VACCINE 2023-2024 0.5 ML DISP.SYRIN IM ONE (11:15)
== END 2023-02-07 15:10 | DRG 377 ==
PROVIDERS: ADMIT Physical Medicine & Rehabilitation Pain Medicine; ATTEND Physical Medicine & Rehabilitation Pain Medicine
PROC: 0DBK8ZX Excision of Ascending Colon, Via Natural or Artificial Opening Endoscopic, Diagnostic (ICD-10-PCS; principal; 2023-01-30)
DX: K92.2 Gastrointestinal hemorrhage, unspecified (principal); E43 Unspecified severe protein-calorie malnutrition; G93.41 Metabolic encephalopathy; N17.0 Acute kidney failure with tubular necrosis; N39.0 Urinary tract infection, site not specified; K62.6 Ulcer of anus and rectum; D62 Acute posthemorrhagic anemia; D68.59 Other primary thrombophilia; E87.1 Hypo-osmolality and hyponatremia; K22.10 Ulcer of esophagus without bleeding; R53.1 Weakness; D64.9 Anemia, unspecified; E11.22 Type 2 diabetes mellitus with diabetic chronic kidney disease; N18.9 Chronic kidney disease, unspecified; E21.3 Hyperparathyroidism, unspecified; E11.9 Type 2 diabetes mellitus without complications; E78.5 Hyperlipidemia, unspecified; E87.6 Hypokalemia; F03.90 Unspecified dementia, unspecified severity, without behavioral disturbance, psychotic disturbance, mood disturbance, and anxiety; I12.9 Hypertensive chronic kidney disease with stage 1 through stage 4 chronic kidney disease, or unspecified chronic kidney disease; K31.84 Gastroparesis; K57.30 Diverticulosis of large intestine without perforation or abscess without bleeding; K63.5 Polyp of colon; M89.8X9 Other specified disorders of bone, unspecified site; R62.7 Adult failure to thrive; Z79.4 Long term (current) use of insulin; Z86.73 Personal history of transient ischemic attack (TIA), and cerebral infarction without residual deficits
CPT/HCPCS: 36415; 71045; 74018; 83735; 84100; 85025; 85730; 93307; 97535-GO-CO; A4663; J1815; J2405; J3010; J3475; J3490; J7042; J8597